=== PATIENT | female | born 1945 | race Caucasian/White ===

== ENCOUNTER → 2017-12-11 | Outpatient (CLI) | payer MEDICARE, OTHER ==
[~2017-12-11] MED LIST: ALPR-448 PO; ASPI-870 PO; ATEN-65 PO; AZIT-1 PO; CALC500T6 PO; CHOL10005 PO; FLU20 PO; FLUO-176 PO; FLUO20TA2 PO; HYDR-385 PO; IBU600 PO; IBU800 PO; LOR5 PO; METH-284 PO; METH5TAB87 PO; MULT1TAB64 PO; NOR5/325 PO; TRAM-420 PO; TRAZ-156 PO; TRIA-20 PO; VALS40TA6 PO; ZOLCR625PT PO
--- NOTE | 2017-12-12 09:35 | RADIOLOGY IMAGING REPORT ---
FACILITY: [facility] - [place] PATIENT NAME: JENNIE HERNANDEZ : [id number] MR: [id number] V: [id number] EXAM DATE: ORDERING PHYSICIAN: SUMI GARCIA TECHNOLOGIST: Shital Valentino PROCEDURE:BILATERAL DIGITAL SCREENING MAMMOGRAM WITH CAD ASSISTED INTERPRETATION & 3D TOMOSYNTHESIS COMPARISON:Prior mammograms 11/14/16, 11/14/15, 11/04/13, 06/30/12, 04/02/11. INDICATIONS:SCREENING FINDINGS: Moderately heterogeneous fibroglandular tissue is seen throughout the breasts. The parenchymal pattern has remained stable allowing for difference in mammographic technique & patient positioning. There is no evidence of malignant appearing mass, malignant appearing calcifications or other secondary sign of malignancy in either breast. DIAGNOSTIC CATEGORY 1--NEGATIVE. RECOMMENDATIONS: ROUTINE MAMMOGRAM AND CLINICAL EVALUATION. IMPRESSION: BIRADS 1: Negative. No significant abnormality is seen. Dictated by: Indu Art M.D. on 12/11/2017 at 15:21 Transcribed by: DARREN on 12/11/2017 at 15:33 Approved by: Indu Art M.D. on 12/12/2017 at 9:34 [facility]
== END ==
LOC: MAMO 01:02
PROVIDERS: ATTEND Emergency Medicine
DX: Z12.31 Encounter for screening mammogram for malignant neoplasm of breast (principal)
CPT/HCPCS: 77063; 77067

== ENCOUNTER → 2017-12-22 | Outpatient (CLI) | payer MEDICARE, OTHER ==
[2017-12-22 11:46] LABS: PLATELET COUNT, AUTOMATED 264 K/uL (150-450)
[2017-12-22 11:51] LABS: LDL CHOLESTEROL 116 mg/dl
== END ==
LOC: LAB 11:14
PROVIDERS: ATTEND Emergency Medicine
DX: E05.90 Thyrotoxicosis, unspecified without thyrotoxic crisis or storm (principal); I10 Essential (primary) hypertension
CPT/HCPCS: 82040; 82247; 82310; 82374; 82435; 82465; 82565; 82947; 83718; 84075; 84132; 84155; 84295; 84443; 84450; 84460; 84478; 84520; 85025

== ENCOUNTER 2018-05-30 06:36 | Emergency (ER) | payer MEDICARE, OTHER ==
[~2018-05-30 06:36] MED LIST changes: +FLUT16SP19 NS; +ROSU10TA5 PO; -TRAZ-156 PO; +TRAZ50TA34 PO
[2018-05-30] MEDS ORDERED: NS(*) 0.9% 1000 ML BAG 1,000 ML IV ONE (06:54)
[2018-05-30] MEDS ORDERED: ALBUTEROL/IPRATROPIUM 3 ML NEB ONE (06:55)
[2018-05-30] MEDS ORDERED: ALBUTEROL/IPRATROPIUM 3 ML NEB NEB ONE ×2 (06:55→07:35)
--- NOTE | 2018-05-30 07:02 | ER Report ---
History and Physical Time Seen By MD: 07:02 Hx. of Stated Complaint: Patient states she has been sick with a cough for 2 months HPI/ROS CHIEF COMPLAINT: Cough, fatigue HISTORY OF PRESENT ILLNESS: Patient is a 72-year-old female who lives at home with her who requires ikwpz-sto-rksga care and she is the primary c aregiver. Patient states that 2 months ago she started with a severe sore throat which then developed into a cough. She had been seen by her primary care provider and was placed on a course of antibiotics. She states that the cough gradually resolved over approximately six-week time. She now again is having cough and difficulty sleeping. She does report sore throat. She denies any fevers or chills. She denies any cardio or pulmonary type of diseases other than hypertension. REVIEW OF SYSTEMS: Constitutional: No fever, no chills. Eyes: No discharge. ENT: Sore throat Cardiovascular: No chest pain, no palpitations. Respiratory: Cough with some production, no shortness of breath Gastrointestinal: No abdominal pain, no vomiting. Genitourinary: No hematuria. Musculoskeletal: No back pain. Skin: No rashes. Neurological: Mild headache Allergies: Coded Allergies: No Known Drug Allergies (Unverified , 05/30/18) Home Meds Active Scripts Fluticasone Prop 50 Mcg Ns (FLONASE 50 MCG NS) 16 Gm [place].susp, 2 SPRAYS NS QDAY, #1 BOT 11 Refills Prov:SUMI GARCIA MD 05/21/18 Triamterene/Hydrochlorothiazid (TRIAMTERENE-HCTZ 37.5-25 MG TB) 1 Each Tablet, 1 TAB PO DAILY, #90 TAB 3 Refills Prov:SUMI GARCIA MD 05/13/18 Rosuvastatin Calcium (Rosuvastatin Calcium) 10 Mg Tablet, 1 TAB PO DAILY, #30 T AB Prov:SUMI GARCIA MD 12/25/17 Alprazolam 0.5 Mg Tab (ALPRAZOLAM 0.5 MG TAB) 0.5 Mg Tablet, 1 TAB PO TID PRN for ANXIETY, #40 TAB Prov:SUMI GARCIA MD 10/18/16 Fluoxetine Hcl (FLUOXETINE HCL) 10 Mg Capsule, 1 CAP PO QDAY, #180 CAPSULE 3 Refills Take along with 20mg for total dose of 30mg daily Prov:SUMI GARCIA MD 10/18/16 Fluoxetine Hcl (FLUOXETINE HCL) 20 Mg Tablet, 1 TAB PO QDAY, #180 TAB 3 Refills Take along with 10mg for total dose of 30mg daily Prov:SUMI GARCIA MD 10/18/16 Reported Medications Calcium Carbonate (CALCIUM) 500 Mg Tablet, 1 TAB PO QDAY, TAB 06/07/15 Multivitamin (MULTI VITAMIN DAILY) 1 Each Tablet, 1 EACH PO QDAY, TAB 06/07/15 Aspirin (Children's Aspirin) 81 Mg Tab.chew, 1 TAB PO DAILY, #100 TAB.CHEW 4 Refills 11/17/14 Cholecalciferol (Vitamin D3) (VITAMIN D3) 1,000 Unit Tablet, 1 TAB PO DAILY, #100 TAB 4 Refills 11/17/14 Past Medical/Surgical History Past medical history for hypertension, history of depression, history of hyperthyroidism Smoking Status: Never Smoker Hx Substance Use Disorder: No Hx Alcohol Use: Yes (OCC) Constitutional Vital Sign - Last 24 Hours 05/30/18 05/30/18 05/30/18 05/30/18 06:40 06:41 06:45 06:55 Temp 99.4 Resp 20 B/P (MAP) 193/103 193/105 (134) Pulse Ox 85 90 O2 Delivery Room Air Nasal Cannula O2 Flow Rate 2.0 2.0 05/30/18 05/30/18 05/30/18 05/30/18 06:55 06:59 07:01 07:06 Pulse 79 81 90 Resp 18 18 B/P (MAP) 138/80 (99) Pulse Ox 100 05/30/18 05/30/18 05/30/18 05/30/18 07:30 07:40 07:40 07:47 Pulse 78 74 Resp 16 16 B/P (MAP) 136/74 (94) Pulse Ox 93 O2 Delivery Nasal Cannula O2 Flow Rate 2.0 Physical Exam General/Constitutional: Patient is awake, alert, nontoxic and in no acute respiratory distress. Head: Normocephalic and atraumatic. Eyes: Conjunctival clear, Pupils are equal and reactive to light. Extraocular muscles are intact and symmetrical. Sclera are clear and anicteric. Ears:External canals are clear. Tympanic membranes are clear with normal landmarks and light reflex. Nares: No rhinorrhea or bleeding. Turbinates are pink and moist. Oropharyngeal: Mucous membranes are moist. There is no pharyngeal erythema or exudate. There are no palatal petechiae. Uvula is midline and symmetrical. Neck: Supple, no adenopathy. Cardiovascular: Heart is regular rate and rhythm without audible murmurs, rubs or gallops. Pulmonary: Lungs are clear to auscultation bilaterally. There are no wheezes, rales, or rhonchi. Chest rise is symmetrical Abdomen: Soft, nontender, no guarding or peritoneal signs. Extremities: No gross deformities, No peripheral cyanosis. Able to move all 4 extremities. Neuro: Alert and oriented X3, Skin: No rashes, skin is warm dry and well perfused. Medical Decision Making Data Points Result Diagram: 05/30/18 0649 05/30/18 0649 Laboratory Hematology Test 05/30/18 06:49 05/30/18 07:25 Red Blood Count 5.17 M/uL (4.17-5.56) Mean Corpuscular Volume 91.6 fL (80.0-96.0) Mean Corpuscular Hemoglobin 31.5 pg (26.0-33.0) Mean Corpuscular Hemoglobin Concent 34.4 g/dL (32.0-36.0) Red Cell Distribution Width 13.4 % (11.5-14.5) Mean Platelet Volume 7.7 fL (7.2-11.1) Neutrophils (%) (Auto) 75.8 % (39.4-72.5) Lymphocytes (%) (Auto) 11.9 % (17.6-49.6) Monocytes (%) (Auto) 11.8 % (4.1-12.4) Eosinophils (%) (Auto) 0.0 % (0.4-6.7) Basophils (%) (Auto) 0.5 % (0.3-1.4) Nucleated RBC Relative Count (auto) 0.0 /100WBC Neutrophils # (Auto) 5.1 K/uL (2.0-7.4) Lymphocytes # (Auto) 0.8 K/uL (1.3-3.6) Monocytes # (Auto) 0.8 K/uL (0.3-1.0) Eosinophils # (Auto) 0.0 K/uL (0.0-0.5) Basophils # (Auto) 0.0 K/uL (0.0-0.1) Nucleated RBC Absolute Count (auto) 0.00 K/uL Peripheral Blood Smear No Y/N Sodium Level 132 mmol/L (137-145) Potassium Level 3.6 mmol/L (3.5-5.0) Chloride Level 97 mmol/L (98-107) Carbon Dioxide Level 26 mmol/L (22-31) Blood Urea Nitrogen 11 mg/dl (7-18) Creatinine 0.70 mg/dl (0.52-1.04) Glomerular Filtration Rate Calc > 60.0 Random Glucose 125 mg/dl (75-110) Calcium Level 9.0 mg/dl (8.4-10.2) Total Bilirubin 0.3 mg/dl (0.2-1.3) Aspartate Amino Transf (AST/SGOT) 30 U/L (0-35) Alanine Aminotransferase (ALT/SGPT) 30 U/L (0-56) Alkaline Phosphatase 67 U/L (0-126) Total Protein 7.8 g/dl (6.3-8.2) Albumin 4.2 g/dl (3.5-5.0) Influenza Virus Type A (PCR) Negative (NEGATIVE) Influenza Virus Type B (PCR) Negative (NEGATIVE) Group A Streptococcus (PCR) Negative (NEGATIVE) Chemistry Test 05/30/18 06:49 05/30/18 07:25 White Blood Count 6.7 k/uL (4.5-11.0) Red Blood Count 5.17 M/uL (4.17-5.56) Hemoglobin 16.3 g/dL (12.0-16.0) Hematocrit 47.4 % (34.0-47.0) Mean Corpuscular Volume 91.6 fL (80.0-96.0) Mean Corpuscular Hemoglobin 31.5 pg (26.0-33.0) Mean Corpuscular Hemoglobin Concent 34.4 g/dL (32.0-36.0) Red Cell Distribution Width 13.4 % (11.5-14.5) Platelet Count 183 K/uL (150-450) Mean Platelet Volume 7.7 fL (7.2-11.1) Neutrophils (%) (Auto) 75.8 % (39.4-72.5) Lymphocytes (%) (Auto) 11.9 % (17.6-49.6) Monocytes (%) (Auto) 11.8 % (4.1-12.4) Eosinophils (%) (Auto) 0.0 % (0.4-6.7) Basophils (%) (Auto) 0.5 % (0.3-1.4) Nucleated RBC Relative Count (auto) 0.0 /100WBC Neutrophils # (Auto) 5.1 K/uL (2.0-7.4) Lymphocytes # (Auto) 0.8 K/uL (1.3-3.6) Monocytes # (Auto) 0.8 K/uL (0.3-1.0) Eosinophils # (Auto) 0.0 K/uL (0.0-0.5) Basophils # (Auto) 0.0 K/uL (0.0-0.1) Nucleated RBC Absolute Count (auto) 0.00 K/uL Peripheral Blood Smear No Y/N Glomerular Filtration Rate Calc > 60.0 Calcium Level 9.0 mg/dl (8.4-10.2) Total Bilirubin 0.3 mg/dl (0.2-1.3) Aspartate Amino Transf (AST/SGOT) 30 U/L (0-35) Alanine Aminotransferase (ALT/SGPT) 30 U/L (0-56) Alkaline Phosphatase 67 U/L (0-126) Total Protein 7.8 g/dl (6.3-8.2) Albumin 4.2 g/dl (3.5-5.0) Influenza Virus Type A (PCR) Negative (NEGATIVE) Influenza Virus Type B (PCR) Negative (NEGATIVE) Group A Streptococcus (PCR) Negative (NEGATIVE) EKG/Imaging Imaging FACILITY: [facility] - [place] PATIENT NAME: Theresa Villalta : 1945 MR: [id number] V: [id number] EXAM DATE: ORDERING PHYSICIAN: GARIMA CAPPS TECHNOLOGIST: Location: [facility] Patient: Theresa Villalta : 1945 Visit/Account:[id number] Date of Sevice: 05/30/2018 Exam type: CHEST PA AND LAT History: Cough and weakness Comparison: 09/28/2010. Findings: Both lungs are hyperexpanded with chronic interstitial changes. There is no focal infiltrate, pleural effusion or pneumothorax. Heart size is minimally prominent. The osseous structures demonstrate a scoliosis. Mild compression deformity at approximately T6 is stable. Sclerosis at the left sternoclavicular joint is likely degenerative. IMPRESSION: 1. Pulmonary hyperinflation but no acute cardiopulmonary disease. Report Dictated By: Demarco Husain MD at 05/30/2018 7:33 AM Report E-Signed By: Demarco Husain MD at 05/30/2018 7:35 AM WSN:[id number] ED Course/Re-evaluation ED Course 05/30/2018 7:13:06 am patient with cough and upper respiratory type symptoms. Plan at this time will be CBC metabolic panel, we'll check rapid strep and influenza screen. We will repeat DuoNeb treatments. Re-evaluation 05/30/2018 8:34:26 am chest x-ray shows some hyperinflation. Patient did improve with her symptoms after 2 DuoNeb treatments. She also had coughed up a large mucous plug. Influenza screen is negative. Patient's sats do decreased to 87% well and urinating. Patient does have oxygen that she can use at home. We'll discharge at this time. Decision to Disposition Date: May 30, 2018 Decision to Disposition Time: 08:37 Depart Departure Latest Vital Signs Vital Signs Date Time Temp Pulse Resp B/P (MAP) Pulse Ox O2 Delivery O2 Flow Rate FiO2 05/30/18 07:47 74 16 05/30/18 07:40 93 Nasal Cannula 2.0 05/30/18 07:30 136/74 (94) 05/30/18 06:40 99.4 Impression: Primary Impression: Cough due to bronchospasm Condition: Improved Disposition: HOME OR SELF-CARE Referrals: SUMI GARCIA MD (PCP) Follow-up with your primary care provider next week if your symptoms persist New Scripts Guaifenesin/Pseudoephedrne Hcl (MUCINEX D ER 1,200-120 MG TAB) 1 Each Tab.er.12h 1 EACH PO Q12H for cough, #30 TAB 0 Refills Prov: GARIMA CAPPS MD 05/30/18 Patient Instructions: Bronchospasm (DC) Additional Instructions: Albuterol inhaler: 2 puffs every 4-6 hours as needed for cough or shortness of breath. Use your oxygen during the day and while sleeping for the next 7 days. If your symptoms do not improve by the beginning of this coming week he should call your primary doctor to schedule a follow-up appointment. Get your Mucinex-D description filled and take as directed. GARIMA CAPPS MD May 30, 2018 07:02
[2018-05-30 07:03] LABS: PLATELET COUNT, AUTOMATED 183 K/uL (150-450)
--- NOTE | 2018-05-30 07:39 | RADIOLOGY IMAGING REPORT ---
FACILITY: [facility] PATIENT NAME: Theresa Villalta : 1945 MR: [id number] V: [id number] EXAM DATE: ORDERING PHYSICIAN: GARIMA CAPPS TECHNOLOGIST: Location: [facility] - [place] Patient: Theresa iVllalta : 1945 Visit/Account:[id number] Date of Sevice: 05/30/2018 Exam type: CHEST PA AND LAT History: Cough and weakness Comparison: 09/28/2010. Findings: Both lungs are hyperexpanded with chronic interstitial changes. There is no focal infiltrate, pleural effusion or pneumothorax. Heart size is minimally prominent. The osseous structures demonstrate a scoliosis. Mild compression deformity at approximately T6 is sta ble. Sclerosis at the left sternoclavicular joint is likely degenerative. IMPRESSION: 1. Pulmonary hyperinflation but no acute cardiopulmonary disease. Report Dictated By: Demarco Husain MD at 05/30/2018 7:33 AM Report E-Signed By: Demarco Husain MD at 05/30/2018 7:35 AM WSN:[id number]
[2018-05-30 08:00] VITALS: BP 128/69
[2018-05-30] MEDS ORDERED: ALBUTEROL 8 GM INHALER INH ONE (08:30)
[2018-05-30] MEDS ORDERED: GUAI-645 PO (08:36)
== END 2018-05-30 08:44 | disposition home or self-care (01) ==
LOC: ER 07:13
DX: J98.01 Acute bronchospasm (principal)
CPT/HCPCS: 71046; 85025; 87502; 87653; 94640; 96360; 96361; 99284; J3535; J7030; J7620; 82040; 82247; 82310; 82374; 82435; 82565; 82947; 84075; 84132; 84155; 84295; 84450; 84460; 84520

== ENCOUNTER 2018-06-03 10:27 | Emergency (ER) | payer MEDICARE, OTHER ==
[~2018-06-03 10:27] MED LIST changes: +GUAI-645 PO
--- NOTE | 2018-06-03 10:30 | ER Report ---
History and Physical Time Seen By MD: 10:28 HPI/ROS CHIEF COMPLAINT: Cough, voice change, shortness of breath for 2 months HISTORY OF PRESENT ILLNESS: Patient is a 72-year-old female here with complaints of the above. She reports that she started with a mild sore throat and developed a nonproductive cough, shortness of breath, raspy voice, exertional dyspnea. She was seen here on May 30 and also recently at [facility] where CT imaging of the chest showed no acute findings. Patient reports worsening symptoms throughout the course of her disease process. Patient is afebrile, hemodynamically stable, denies chest pains, headache, blurred vision, focal neurological findings, abdominal pain, nausea, vomiting. Patient does have histo ry of hypertension on triamterene and hydrochlorothiazide, statin, fluoxetine. Denies prior history of heart failure, COPD, smoking. REVIEW OF SYSTEMS: Constitutional: No fever, no chills. Eyes: No discharge. ENT: +prior sore throat, + "raspy voice" Cardiovascular: No chest pain, no palpitations. Respiratory: + dry cough, + shortness of breath. Gastrointestinal: No abdominal pain, no vomiting. Genitourinary: No hematuria. Musculoskeletal: No back pain. Skin: No rashes. Neurological: No headache. Allergies: Coded Allergies: No Known Drug Allergies (Unverified , 06/03/18) Home Meds Active Scripts Prednisone 10 Mg Tab (PREDNISONE 10 MG TAB) 10 Mg Tablet, 50 MG PO QDAY for 4 Days, #20 TAB Prov:GUSTAVO PARTIDA DO 06/03/18 Guaifenesin/Pseudoephedrne Hcl (MUCINEX D ER 1,200-120 MG TAB) 1 Each Tab.er.12h, 1 EACH PO Q12H for cough, #30 TAB 0 Refills Prov:GARIMA CAPPS MD 05/30/18 Triamterene/Hydrochlorothiazid (TRIAMTERENE-HCTZ 37.5-25 MG TB) 1 Each Tablet, 1 TAB PO DAILY, #90 TAB 3 Refills Prov:SUMI GILBERT MD 05/13/18 Rosuvastatin Calcium (Rosuvastatin Calcium) 10 Mg Tablet, 1 TAB PO DAILY, #30 TAB Prov:SUMI GILBERT MD 12/25/17 Alprazolam 0.5 Mg Tab (ALPRAZOLAM 0.5 MG TAB) 0.5 Mg Tablet, 1 TAB PO TID PRN for ANXIETY, #40 TAB Prov:SUMI GILBERT MD 10/18/16 Fluoxetine Hcl (FLUOXETINE HCL) 10 Mg Capsule, 1 CAP PO QDAY, #180 CAPSULE 3 Refills Take along with 20mg for total dose of 30mg daily Prov:SUMI GILBERT MD 10/18/16 Fluoxetine Hcl (FLUOXETINE HCL) 20 Mg Tablet, 1 TAB PO QDAY, #180 TAB 3 Refills Take along with 10mg for total dose of 30mg daily Prov:SUMI GILBERT MD 10/18/16 Reported Medications Albuterol Sulfate (VENTOLIN HFA) 18 Gm Inh, 2 PUFF INH Q4-6H, INH 06/03/18 Calcium Carbonate (CALCIUM) 500 Mg Tablet, 1 TAB PO QDAY, TAB 06/07/15 Multivitamin (MULTI VITAMIN DAILY) 1 Each Tablet, 1 EACH PO QDAY, TAB 06/07/15 Aspirin (Children's Aspirin) 81 Mg Tab.chew, 1 TAB PO DAILY, #100 TAB.CHEW 4 Refills 11/17/14 Cholecalciferol (Vitamin D3) (VITAMIN D3) 1,000 Unit Tablet, 1 TAB PO DAILY, #100 TAB 4 Refills 11/17/14 Discontinued Scripts Fluticasone Prop 50 Mcg Ns (FLONASE 50 MCG NS) 16 Gm [place].susp, 2 SPRAYS NS QDAY, #1 BOT 11 Refills Prov:SUMI GILBERT MD 05/21/18 Smoking Status: Never Smoker Hx Substance Use Disorder: No Hx Alcohol Use: Yes (OCC) Constitutional Vital Sign - Last 24 Hours 06/03/18 06/03/18 06/03/18 06/03/18 10:30 10:52 10:52 13:16 Temp 98.6 Pulse 82 70 80 Resp 24 14 20 B/P (MAP) 174/115 131/92 (105) Pulse Ox 92 93 95 O2 Delivery Room Air Room Air Room Air Physical Exam General Appearance: The patient is alert, has no immediate need for airway protection and no signs of toxicity. NAD Eyes: Pupils equal and round no pallor or injection. ENT, Mouth: Mucous membranes are moist, Posterior oropharynx is non erythematous without exudates, + cervical adenopathy, no stridor Respiratory: There are no retractions, lungs are clear to auscultation, No wheezing Cardiovascular: Regular rate and rhythm. Gastrointestinal: Abdomen is soft and non tender, no masses, bowel sounds normal. Neurological: No focal neuro deficits Skin: Warm and dry, no rashes. Musculoskeletal: Neck is supple with + cervical adenopathy Extremities are nontender, nonswollen and have full range of motion. [ ] DIFFERENTIAL DIAGNOSIS: After history and physical exam differential diagnosis was considered forshortness of breath including but not limited to pulmonary infectious process, COPD, asthma, pulmonary embolus and congestive heart failure. Medical Decision Making Data Points Result Diagram: 06/03/18 1045 06/03/18 1045 Laboratory Hematology Test 06/03/18 10:45 Red Blood Count 4.97 M/uL (4.17-5.56) Mean Corpuscular Volume 91.2 fL (80.0-96.0) Mean Corpuscular Hemoglobin 31.0 pg (26.0-33.0) Mean Corpuscular Hemoglobin Concent 34.0 g/dL (32.0-36.0) Red Cell Distribution Width 13.4 % (11.5-14.5) Mean Platelet Volume 7.4 fL (7.2-11.1) Neutrophils (%) (Auto) 53.6 % (39.4-72.5) Lymphocytes (%) (Auto) 31.1 % (17.6-49.6) Monocytes (%) (Auto) 11.2 % (4.1-12.4) Eosinophils (%) (Auto) 2.9 % (0.4-6.7) Basophils (%) (Auto) 1.2 % (0.3-1.4) Nucleated RBC Relative Count (auto) 0.1 /100WBC Neutrophils # (Auto) 2.5 K/uL (2.0-7.4) Lymphocytes # (Auto) 1.4 K/uL (1.3-3.6) Monocytes # (Auto) 0.5 K/uL (0.3-1.0) Eosinophils # (Auto) 0.1 K/uL (0.0-0.5) Basophils # (Auto) 0.1 K/uL (0.0-0.1) Nucleated RBC Absolute Count (auto) 0.00 K/uL D-Dimer Quantitative (PE/DVT) 0.29 ug/ml (0-0.50) Blood Gas Patient Temperature 98.6 DEGREES Venous Blood pH 7.42 (7.31-7.41) Venous Blood Partial Pressure CO2 39 mmHg Venous Blood Partial Pressure O2 41 mmHg Venous Blood HCO3 26 mmol/L Venous Blood Oxygen Saturation 78 % Venous Blood Base Excess 1 mmol/L Oxygen Liters/Minute 0 Sodium Level 136 mmol/L (137-145) Potassium Level 4.1 mmol/L (3.5-5.0) Chloride Level 99 mmol/L (98-107) Carbon Dioxide Level 25 mmol/L (22-31) Blood Urea Nitrogen 11 mg/dl (7-18) Creatinine 0.70 mg/dl (0.52-1.04) Glomerular Filtration Rate Calc > 60.0 Random Glucose 97 mg/dl (75-110) Calcium Level 9.7 mg/dl (8.4-10.2) Total Bilirubin 0.7 mg/dl (0.2-1.3) Aspartate Amino Transf (AST/SGOT) 31 U/L (0-35) Alanine Aminotransferase (ALT/SGPT) 37 U/L (0-56) Alkaline Phosphatase 60 U/L (0-126) Troponin I < 0.012 ng/ml B-Type Natriuretic Peptide 21 pg/ml (0-100) Total Protein 7.3 g/dl (6.3-8.2) Albumin 4.0 g/dl (3.5-5.0) Chemistry Test 06/03/18 10:45 White Blood Count 4.6 k/uL (4.5-11.0) Red Blood Count 4.97 M/uL (4.17-5.56) Hemoglobin 15.4 g/dL (12.0-16.0) Hematocrit 45.3 % (34.0-47.0) Mean Corpuscular Volume 91.2 fL (80.0-96.0) Mean Corpuscular Hemoglobin 31.0 pg (26.0-33.0) Mean Corpuscular Hemoglobin Concent 34.0 g/dL (32.0-36.0) Red Cell Distribution Width 13.4 % (11.5-14.5) Platelet Count 278 K/uL (150-450) Mean Platelet Volume 7.4 fL (7.2-11.1) Neutrophils (%) (Auto) 53.6 % (39.4-72.5) Lymphocytes (%) (Auto) 31.1 % (17.6-49.6) Monocytes (%) (Auto) 11.2 % (4.1-12.4) Eosinophils (%) (Auto) 2.9 % (0.4-6.7) Basophils (%) (Auto) 1.2 % (0.3-1.4) Nucleated RBC Relative Count (auto) 0.1 /100WBC Neutrophils # (Auto) 2.5 K/uL (2.0-7.4) Lymphocytes # (Auto) 1.4 K/uL (1.3-3.6) Monocytes # (Auto) 0.5 K/uL (0.3-1.0) Eosinophils # (Auto) 0.1 K/uL (0.0-0.5) Basophils # (Auto) 0.1 K/uL (0.0-0.1) Nucleated RBC Absolute Count (auto) 0.00 K/uL D-Dimer Quantitative (PE/DVT) 0.29 ug/ml (0-0.50) Blood Gas Patient Temperature 98.6 DEGREES Venous Blood pH 7.42 (7.31-7.41) Venous Blood Partial Pressure CO2 39 mmHg Venous Blood Partial Pressure O2 41 mmHg Venous Blood HCO3 26 mmol/L Venous Blood Oxygen Saturation 78 % Venous Blood Base Excess 1 mmol/L Oxygen Liters/Minute 0 Glomerular Filtration Rate Calc > 60.0 Calcium Level 9.7 mg/dl (8.4-10.2) Total Bilirubin 0.7 mg/dl (0.2-1.3) Aspartate Amino Transf (AST/SGOT) 31 U/L (0-35) Alanine Aminotransferase (ALT/SGPT) 37 U/L (0-56) Alkaline Phosphatase 60 U/L (0-126) Troponin I < 0.012 ng/ml B-Type Natriuretic Peptide 21 pg/ml (0-100) Total Protein 7.3 g/dl (6.3-8.2) Albumin 4.0 g/dl (3.5-5.0) Coagulation Test 06/03/18 10:45 D-Dimer Quantitative (PE/DVT) 0.29 ug/ml EKG/Imaging EKG Interpretation PATIENT NAME: JENNIE HERNANDEZ : [id number] MR: [id number] V: [id number] EXAM DATE: ORDERING PHYSICIAN: GUSTAVO PARTIDA TECHNOLOGIST: LOYDA Test Reason : SOB Blood Pressure : / mmHG Vent. Rate : 064 BPM Atrial Rate : 064 BPM P-R Int : 154 ms QRS Dur : 092 ms QT Int : 424 ms P-R-T Axes : 076 -50 066 degrees QTc Int : 437 ms Normal sinus rhythm Left axis deviation Septal infarct (cited on or before 19-DEC-2016) Abnormal ECG When compared with ECG of 24-DEC-2016 09:11, QRS axis shifted left Referred By: JAQUAN Confirmed By: Monitor Interpretation: Normal Sinus Rhythm Imaging Location: [facility] Patient: Jennie Hernandez : 1945 Visit/Account:[id number] Date of Sevice: 06/03/2018 Exam type: CHEST PA AND LAT History: RESP DISTRESS, cough x4 weeks Comparison: May 30, 2018. , September 28, 2010 Findings: The lungs are free of acute effusions, infiltrates or edema. There is hyperinflation of the lung nazario There is a nodular density projecting over the medial left upper thorax which was not appreciated on a prior chest from September 28, 2010The cardiac silhouette is normal in size. The trachea is in midline. IMPRESSION: 1. No evidence of acute bony consolidation. Hyperinflation of the lung nazario There is a nodular density projecting over the medial left upper thorax not appreciated on a prior chest from 2010. Short-term interval follow-up chest or chest CT may be helpful for further evaluation ED Course/Re-evaluation ED Course Patient is a 72-year-old female here with cough and shortness breath which has been progressive over the past 2 months. Patient was seen 2 days ago at [facility] where she had a negative CTA of the chest and an unremarkable workup. Patient was sent home with Rakan Smith. Today she reports progressive symptoms raspy voice, persistent shortness of breath prompting evaluation. Patient was given a DuoNeb treatment which gave mild relief of symptoms. Chest x-ray showed no acute findings. EKG was unremarkable. CBC, CMP were found be normal. D-dimer was negative making PE unlikely. Troponin was negative. VBG was normal. Patient was updated regarding these findings and was started on a five-day course of prednisone 1st dose of which she was given in the emergency department. I updated Dr. Gilbert regarding these findings. Patient has scheduled follow-up on Friday with pulmonology which I believe to be an appropriate next step. Patient agreed to return promptly if she developed exacerbation of symptoms, chest pains, fevers, nausea, vomiting. Patient was hemodynamically stable at time of discharge and in no acute respiratory distress. Decision to Disposition Date: Jun 03, 2018 Decision to Disposition Time: 13:03 Depart Departure Latest Vital Signs Vital Signs Date Time Temp Pulse Resp B/P (MAP) Pulse Ox O2 Delivery O2 Flow Rate FiO2 06/03/18 13:16 80 20 131/92 (105) 95 Room Air 06/03/18 10:30 98.6 Impression: Primary Impression: Shortness of breath Additional Impression: Cough Condition: Improved Disposition: HOME OR SELF-CARE Referrals: SUMI GILBERT MD (PCP) New Scripts Prednisone 10 Mg Tab (PREDNISONE 10 MG TAB) 10 Mg Tablet 50 MG PO QDAY for 4 Days, #20 TAB Prov: GUSTAVO PARTIDA DO 06/03/18 Patient Instructions: Chronic Cough (ED), Dyspnea (ED), Prednisone (By mouth) Additional Instructions: Please drink plenty of water. Today your chest x-ray showed no signs of bacterial pneumonia, fluid on the lungs or other concerning signs. Your blood counts including CBC, CMP, troponin, d-dimer were found to be normal today. I reviewed year prior workup at [facility] which included CTA of the chest which was found to be normal 2 days ago. You received a DuoNeb and your started on prednisone 5 day burst therapy. Please take 50 mg daily for the next 4 days. Please return immediately if you develop fevers, chills, worsening cough, difficulty breathing, chest pains, abdominal pains, nausea, vomiting. Please follow-up with your pulmonology appointment on Friday as scheduled. Problem Qualifiers GUSTAVO PARTIDA DO Jun 03, 2018 10:30
[2018-06-03] MEDS ORDERED: ALB18R INH (10:36)
[2018-06-03] MEDS ORDERED: ALBUTEROL/IPRATROPIUM 3 ML NEB NEB ONE (10:40)
[2018-06-03 10:58] LABS: PLATELET COUNT, AUTOMATED 278 K/uL (150-450)
--- NOTE | 2018-06-03 11:00 | EKG ---
FACILITY: [facility] PATIENT NAME: JENNIE HERNANDEZ : [id number] MR: [id number] V: [id number] EXAM DATE: ORDERING PHYSICIAN: GUSTAVO PARTIDA TECHNOLOGIST: LOYDA Test Reason : SOB Blood Pressure : / mmHG Vent. 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
--- NOTE | 2018-06-03 12:14 | RADIOLOGY IMAGING REPORT ---
FACILITY: [facility] [place] PATIENT NAME: Theresa Villalta : 1945 MR: [id number] V: [id number] EXAM DATE: ORDERING PHYSICIAN: GUSTAVO PARTIDA TECHNOLOGIST: Location: [facility] [place] Patient: Theresa Villalta : 1945 Visit/Account:[id number] Date of Sevice: 06/03/2018 Exam type: CHEST PA AND LAT History: RESP DISTRESS, cough x4 weeks Comparison: May 30, 2018. , September 28, 2010 Findings: The lungs are free of acute effusions, infiltrates or edema. There is hyperinflation of the lung fie lds There is a nodular density projecting over the medial left upper thorax which was not appreciated on a prior chest from September 28, 2010The cardiac silhouette is normal in size. The trachea is in mid line. IMPRESSION: 1. No evidence of acute bony consolidation. Hyperinflation of the lung nazario There is a nodular density projecting over the medial left upper thorax not appreciated on a prior ch est from 2010. Short-term interval follow-up chest or chest CT may be helpful for further evaluation Report Dictated By: Indu Art MD at 06/03/2018 12:07 PM Report E-Signed By: Indu Art MD at 06/03/2018 12:10 PM WSN:[email or web address]
[2018-06-03] MEDS ORDERED: predniSONE 20 MG TAB PO ONE (12:40)
[2018-06-03] MEDS ORDERED: PRED-1 PO (13:02)
[2018-06-03 13:16] VITALS: BP 131/92
[2018-06-05] MEDS ORDERED: ALB18R INH (13:36)
== END 2018-06-03 13:12 | disposition home or self-care (01) ==
LOC: ER 10:32
DX: R06.02 Shortness of breath (principal); R05 Cough
CPT/HCPCS: 71046; 82803; 83880; 84484; 85025; 85379; 93005; 94640; 99284; J7512; J7620; 82040; 82247; 82310; 82374; 82435; 82565; 82947; 84075; 84132; 84155; 84295; 84450; 84460; 84520

== ENCOUNTER → 2018-12-15 | Outpatient (CLI) | payer MEDICARE, OTHER ==
[~2018-12-15] MED LIST changes: +ALB18R INH; +PRED-1 PO; -TRAZ50TA34 PO; +TRAZ50TA52 PO; +TRET20CR37 TP
--- NOTE | 2018-12-15 13:45 | RADIOLOGY IMAGING REPORT ---
[place] [facility] [place] Theresa Villalta : 1945 MR: [id number] V: [id number] EXAM DATE: ORDERING PHYSICIAN: SUMI GARCIA TECHNOLOGIST: Location: [facility] [place] Patient: Theresa Villalta : 1945 Visit/Account:[id number] Date of Sevice: 12/15/2018 DEXA Scan Clinical history: A symptomatically post menopausal estrogen deficiency. Comparison: None available. LUMBAR SPINE: The bone mineral density (BMD) measured from L1-L4 correlates with a Z-score 2.2 and a T-score of 0.1 which is Normal as defined by the World Health Organization. The corresponding risk of fracture in the lumbar spine is Not increased compared with a young adult reference population. HIP: Bone mineral density (BMD) measured in the Left total hip region correlates with a Z-score 1.9 and a T-score of -0.1 which is Normal as defined by the World Health Organization. The corresponding risk of fracture in the hip is Not increased compared with a young adult reference population. T score l eft femoral neck -0.4 Bone mineral density (BMD) measured in the Femoral Neck region measures 0.989 g/cm2. Impression: 1. Lumbar spine: Normal. 2. Left Hip: Normal. 3. Femoral Neck: Bone Mineral Density is 0.989 g/cm2 The next DEXA scan of this patient should include the following sites: L1-L4 and the left hip. FRAX? WHO Fracture Risk Assessment Tool link: <http://www.shef.ac.uk/FRAX/tool.jsp?locationValue=9> PLEASE NOTE: 1) The World Health Organization defines low BMD as follows: T-score Normal > -1 Osteopenia < -1 and > -2.5 Osteoporosis < -2.5 without fractures Established osteoporosis < -2.5 with fractures 2) In general, you may wish to consider: Diagnosis Treatment Follow-up DEXA Normal BMD Prevention 2-3 years Osteopenia Prevention/therapy 1-2 years Osteoporosis Therapy Yearly 3) Fracture risk estimated from the T-score is more accurate for vertebral fractures (often spontane ous) than for hip fractures. Report Dictated By: Indu Art MD at 12/15/2018 1:38 PM Report E-Signed By: Indu Art MD at 12/15/2018 1:39 PM WSN:[email or web address]
--- NOTE | 2018-12-16 09:21 | RADIOLOGY IMAGING REPORT ---
F[place] [facility] [place]IENT NAME: JENNIE HERNANDEZ : [id number] MR: [id number] V: [id number] EXAM DATE: [id number] ORDERING PHYSICIAN: SUMI GARCIA TECHNOLOGIST: Shital Valentino PROCEDURE: BILATERAL DIGITAL SCREENING MAMMOGRAM WITH CAD ASSISTED INTERPRETATION & 3D TOMOSYNTHESIS. REASON FOR STUDY: Screening. FAMILY HISTORY OF BREAST CANCER: None. BREAST PROCEDURES/TREATMENTS: None. COMPARISON: 12/11/17, 11/14/16, 11/14/15, 11/04/13, 06/30/12. VIEWS OBTAINED: Bilateral 2D & 3D full field CC & MLO projections. BREAST DENSITY: The breasts are heterogeneously dense which can obscure small masses. MAMMOGRAM FINDINGS: The parenchymal pattern has remained stable allowing for difference in mammographic technique & patient positioning. IMPRESSION: BIRADS 1: Negative. DIAGNOSTIC CATEGORY 1--NEGATIVE. RECOMMENDATIONS: ROUTINE MAMMOGRAM AND CLINICAL EVALUATION. Dictated by: Indu Art M.D. on 12/15/2018 at 17:26 Transcribed by: DARREN on 12/16/2018 at 8:25 Approved by: Indu Art M.D. on 12/16/2018 at 9:17 [facility]
== END ==
LOC: MAMO 00:43
PROVIDERS: ATTEND Emergency Medicine
DX: Z12.31 Encounter for screening mammogram for malignant neoplasm of breast (principal); Z78.0 Asymptomatic menopausal state
CPT/HCPCS: 77063; 77067; 77080